=== PATIENT | female | born 1960 | race African-American/Black ===

== ENCOUNTER 2023-10-23 19:28 | Emergency (ER) | payer OTHER ==
[~2023-10-23] VITALS: Ht 165.1 cm; Wt 88.0 kg
[~2023-10-23 19:28] MED LIST: METF100P3 MC
[2023-10-23 19:37] VITALS: O2SAT 96
[2023-10-23 22:08] LABS: HEMATOCRIT. 37.7 % (36.0-48.0); HEMOGLOBIN. 12.2 g/dL (12.0-16.0); MEAN CORPUSCULAR HGB CONC 32.4 g/dL (31.0-37.0); MEAN PLATELET VOLUME 8.5 fl (7.4-10.4); PLATELET 167 x1000/uL (130-400); RED CELL DISTRIBUTION WIDTH 15.6 % (11.6-14.6); WHITE BLOOD COUNT 6.7 x1000/uL (4.5-11.0)
[2023-10-23 22:14] LABS: CARBON DIOXIDE 25 mEq/L (21-32); CHLORIDE 110 mEq/L (98-107); POTASSIUM 4.2 mEq/L (3.5-5.1); SODIUM 142 mEq/L (136-145)
[2023-10-23 22:15] LABS: CALCIUM 8.3 mg/dL (8.7-10.4)
[2023-10-23 22:20] LABS: CREATININE 0.8 mg/dL (0.6-1.0); ETHANOL BLOOD 15 mg/dL (<10); GLUCOSE 144 mg/dL (70-105); UREA NITROGEN BLOOD 9 mg/dL (9-23)
[2023-10-23 22:23] LABS: BG CARBOXYHEMOGLOBIN 1.7 % (0.5-1.5); BG DEOXYHEMOGLOBIN 0.3 % (0.0-5.0); BG FRACTION INSPIRED OXYGEN 100; BG HCO3 ACT 22.6 mmol/L (22.0-26.0); BG METHEMOGLOBIN 0.1 % (0.0-1.5); BG OXYGEN SATURATION 99.7 % (92.0-98.5); BG OXYHEMOGLOBIN 97.9 % (94.0-97.0); BG PH 7.202 (7.350-7.450); BG PO2 291.3 mmHg (75.0-100.0); BG SAMPLE SITE RIGHT RADIAL; BG TOTAL HEMOGLOBIN 13.1 g/dL (12.0-18.0); BG VENT MODE MASK - NRB
[2023-10-23 22:34] LABS: DIFFERENTIAL COMMENT 1
[2023-10-23 22:57] LABS: PLATELET ESTIMATE NORMAL
[2023-10-23] MEDS: SODIUM CHLORIDE 0.9% 1,000 ML IV ONE (23:01)
[2023-10-24 04:11] VITALS: BP 122/53; PULSE 79; RESP 21; TEMP 98.2
== END 2023-10-24 04:52 | disposition short-term general hospital (02) ==
LOC: ER 19:28
DX: G93.49 Other encephalopathy (principal); E11.9 Type 2 diabetes mellitus without complications
CPT/HCPCS: 80048; 80320; 85025; 36415; 71045; 70450; 82805; 82375; 96360; 99285; 36600; 93005; J7030; Z7610; G0480